=== PATIENT | male | born 1995 | race American Indian/Alaskan Native ===

== ENCOUNTER 2017-11-22 18:56 | Emergency (ER) | payer SELFPAY ==
[2017-11-22] MEDS ORDERED: NORCO 5/325 ONE (23:00)
[2017-11-22] MEDS ORDERED: CATAPRES ONE (23:01)
[2017-11-22] MEDS ORDERED: NORCO 5/325 PO ONE (23:04)
[2017-11-22] MEDS ORDERED: CATAPRES PO ONE (23:04)
[2017-11-22 23:49] VITALS: BP 164/110
--- NOTE | 2017-11-22 23:52 | Emergency Department Report ---
Upper Extremity - HPI Chief Complaint: Extremity Injury, Upper Stated Complaint: LEFT ARM PAIN Time Seen by Provider: 11/22/17 23:46 Upper Extremity: Left Elbow Occurred When: >5 Days Mechanism: Fall, Hyperextension Severity: severe Symptoms: Yes Pain with Movement, Yes Limited Range of Movement, No Deformity, No Numbness, No Weakness, No Swelling, No Bruising/Ecchymosis, No Laceration or Abrasion Other History: 22 year old male c/o left elbow pain after sustaining a fall down stairs. Patient is unable to stretch arm out. Pain is constant and stabbing. Worst with extenstion or bumping into it. Better with ice for couple of minutes. PMH none, Meds none nkda. Was noted to have elevated blood pressure in Triage 178/116. Denies any chest pain headache shortness of breathing change in vision. ED Review of Systems ROS: Stated complaint: LEFT ARM PAIN Other details as noted in HPI Constitutional: denies: chills, fever Eyes: denies: eye pain, eye discharge, vision change ENT: denies: ear pain, throat pain Respiratory: denies: cough, shortness of breath, wheezing Cardiovascular: denies: chest pain, palpitations Endocrine: no symptoms reported Gastrointestinal: denies: abdominal pain, nausea, diarrhea Genitourinary: denies: urgency, dysuria Musculoskeletal: arthralgia (left elbow) Skin: denies: rash, lesions Neurological: denies: headache, weakness, paresthesias Psychiatric: denies: anxiety, depression Hematological/Lymphatic: denies: easy bleeding, easy bruising ED Past Medical Hx - Social History Smoking Status: Current Every Day Smoker - Medications Home Medications: Home Medications Medication Instructions Recorded Confirmed Last Taken Type Ibuprofen [Motrin 800 MG tab] 800 mg PO Q8HR PRN #30 tablet 11/23/17 Unknown Rx Lisinopril/Hydrochlorothiazide 1 tab PO QDAY #30 tablet 11/23/17 Unknown Rx [Zestoretic 10-12.5 mg] Upper Extremity Exam - Exam General: Vital signs noted. No distress. Alert and acting appropriately. Head and Torso: No HEENT Abnormality, No Neck Tenderness, No Chest/Lungs Abnormality, No Abdominal Tenderness, No Back Tenderness Shoulder Exam: Yes Normal Range of Motion in Shoulder, No Shoulder Tenderness, No Clavicle Tenderness, No Shoulder Deformity, No AC Joint Tenderness Arm Exam: No Arm/Humerus Tenderness, No Arm Deformity Elbow: Yes Elbow Tenderness, No Normal Range of Motion in Elbow, No Elbow Deformity Forearm: No Forearm Tenderness, No Forearm Deformity, No Pain with Pronation, No Pain with Supination Wrist: Yes Normal ROM in Wrist, No Wrist Tenderness, No Wrist Deformity, No Snuffbox Tenderness, No Pain with Axial Thumb Compression Hand: Yes Normal ROM in Digit(s), No Hand Tenderness, No Hand Deformity, No Digit Tenderness, No Digit(s) Deformity, No Tendon Dysfunction CMS Exam: Yes Normal Distal Pulses, Yes Normal Capillary Refill, Yes Normal Distal Sensation, No Broken Skin ED Course Vital Signs 11/22/17 11/22/17 11/22/17 19:07 21:49 22:58 Temperature 98.6 F 98.7 F Pulse Rate 76 68 Respiratory 18 20 Rate Blood Pressure 180/116 Blood Pressure 177/110 178/116 [Right] O2 Sat by Pulse 100 99 Oximetry 11/22/17 23:05 Temperature Pulse Rate Respiratory 18 Rate Blood Pressure 178/116 Blood Pressure [Right] O2 Sat by Pulse Oximetry ED Medical Decision Making - Radiology Data Radiology results: report reviewed, image reviewed FINAL REPORT EXAM: XR ELBOW 3+V LT HISTORY: pain left elbow status post fall down steps TECHNIQUE: Three views of the left elbow PRIORS: None. FINDINGS: The bones are normally aligned and mineralized. The joint spaces are well-preserved. There is no evidence of acute fracture. The soft tissues are unremarkable. IMPRESSION: No evidence of acute fracture or subluxation. Transcribed By: LAURA Dictated By: TAMAR BANKS MD Electronically Authenticated By: TAMAR BANKS MD Signed Date/Time: 11/23/1721 DD/ TD/TT: 11/23/1721 - Medical Decision Making Patient's been evaluated for this provider fast track. Patient's had a clonidine 0.1 mg for elevated blood pressure. Patient's been given [place] for pain. X-ray order for elbow. We'll continue to monitor pending x-ray results. Critical care attestation.: If time is entered above; I have spent that time in minutes in the direct care of this critically ill patient, excluding procedure time. ED Disposition Clinical Impression: Contusion of elbow, left Qualifiers: Encounter type: initial encounter Qualified Code(s): S50.02XA - Contusion of left elbow, initial encounter Hypertension Qualifiers: Hypertension type: essential hypertension Qualified Code(s): I10 - Essential ( primary) hypertension Disposition: - TO HOME OR SELFCARE Is pt being admited?: No Does the pt Need Aspirin: No Condition: Stable Instructions: Elbow Sprain (ED), Arthralgia (ED), Hypertension (ED) Additional Instructions: Please take pain medication as prescribed. Please take hypertensive medication as prescribed. I recommend free to follow up with [facility] regarding your hypertension. I have given you 30 days worth of medication. Please follow up with an orthopedist if her elbow continues to be in pain I have listed several below. Prescriptions: Ibuprofen [Motrin 800 MG tab] 800 mg PO Q8HR PRN #30 tablet PRN Reason: Pain Lisinopril/Hydrochlorothiazide [Zestoretic 10-12.5 mg] 1 tab PO QDAY #30 tablet Referrals: PRIMARY MD JANE [Primary Care Provider] - 3-5 Days BON LOVETT MD [Staff Physician] - 3-5 Days STEFANI JONES MD [Staff Physician] - 3-[address] [facility] [Provider Group] - 3-5 Days Forms: Work/School Release Form(ED), Accompanied Note
--- NOTE | 2017-11-23 00:27 | XRay Report ---
FINAL REPORT EXAM: XR ELBOW 3+V LT HISTORY: pain left elbow status post fall down steps TECHNIQUE: Three views of the left elbow PRIORS: None. FINDINGS: The bones are normally aligned and mineralized. The joint spaces are well-preserved. There is no evidence of acute fracture. The soft tissues are unremarkable. IMPRESSION: No evidence of acute fracture or subluxation.
== END 2017-11-23 01:05 | disposition home or self-care (01) ==
LOC: ED 18:56
DX: S50.02XA Contusion of left elbow, initial encounter (principal); I10 Essential (primary) hypertension; F17.200 Nicotine dependence, unspecified, uncomplicated; W18.39XA Other fall on same level, initial encounter; Y93.89 Activity, other specified; Y92.89 Other specified places as the place of occurrence of the external cause; Y99.8 Other external cause status
CPT/HCPCS: 99283

== ENCOUNTER 2018-09-11 16:54 | Emergency (ER) | payer SELFPAY ==
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
[2018-09-11] MEDS ORDERED: NACL 0.9% 1000 ML 1,000 ML IV ONE (17:30)
[2018-09-11] MEDS ORDERED: TORADOL IV ONE (17:31)
[2018-09-11] MEDS ORDERED: MORPHINE IV ONE (17:31)
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
[2018-09-11] MEDS ORDERED: APRESOLINE IV ONE ×2 (19:24→20:46)
[2018-09-11 21:07] VITALS: BP 179/91
== END 2018-09-11 21:41 | disposition home or self-care (01) ==
LOC: ED 16:54
DX: S76.312A Strain of muscle, fascia and tendon of the posterior muscle group at thigh level, left thigh, initial encounter (principal); M54.5 Low back pain; I10 Essential (primary) hypertension; F17.200 Nicotine dependence, unspecified, uncomplicated; V49.59XA Passenger injured in collision with other motor vehicles in traffic accident, initial encounter; Y93.89 Activity, other specified; Y92.89 Other specified places as the place of occurrence of the external cause; Y99.8 Other external cause status
CPT/HCPCS: 72100; 73552; 96374; 96375; 96376; 99283; J0360; J1885; J2270; J7030